=== PATIENT | female | born 1945 | race Caucasian/White ===

== ENCOUNTER → 2018-08-05 14:04 | Outpatient (CLI) | payer MEDICARE, BC ==
[2016-01-02 07:07] VITALS: BMI 27.1
[~2018-08-05 14:04] MED LIST: BAYER CHEWABLE81 MG PO; CALCIUM 600 +1 EAC3 PO; FISH OIL 1,0001 CA1 PO; MULTIPLE VITAMI1 TA1 PO
== END | disposition home or self-care (01) ==
LOC: D.MRI 08-02 14:30
PROVIDERS: ATTEND Family Medicine
DX: M50.90 Cervical disc disorder, unspecified, unspecified cervical region (principal)